=== PATIENT | male | born 1955 | race Caucasian/White ===

== ENCOUNTER 2017-05-16 14:56 | Emergency (ER) | payer OTHER ==
[~2017-05-16] VITALS: Ht 182.9 cm; Wt 94.0 kg
[2017-05-16 14:59] VITALS: BP 158/82
[2017-05-16] MEDS ORDERED: OMEP-110 PO (15:03)
[2017-05-16] MEDS ORDERED: IBUPROFEN 200 MG TABLET PO ONE (16:00)
[2017-05-16] MEDS ORDERED: IBUPROFEN 200 MG TABLET ONE (16:05)
== END 2017-05-16 17:25 | disposition home or self-care (01) ==
LOC: ED 17:20
DX: S83.412A Sprain of medial collateral ligament of left knee, initial encounter (principal); S83.422A Sprain of lateral collateral ligament of left knee, initial encounter; Y93.23 Activity, snow (alpine) (downhill) skiing, snowboarding, sledding, tobogganing and snow tubing; Y92.89 Other specified places as the place of occurrence of the external cause; Y99.8 Other external cause status; K21.9 Gastro-esophageal reflux disease without esophagitis
CPT/HCPCS: 29505; 99284